=== PATIENT | female | born 1995 | race American Indian/Alaskan Native ===

== ENCOUNTER 2018-11-03 11:02 | Emergency (ER) | payer BC ==
--- NOTE | 2018-11-03 11:20 | Emergency Department Report ---
Blank Doc - Documentation Documentation: 23 y/o female c/o cough for 3 weeks and sore throat for 3 days. Last menses September 26 had negative home test 2 days ago. Plan. Cxr if urine preg neg. if positive f/u with OB
--- NOTE | 2018-11-03 11:53 | Emergency Department Report ---
- General Chief Complaint: Upper Respiratory Infection Stated Complaint: CHEST PAIN Time Seen by Provider: 11/03/18 11:16 Source: patient Mode of arrival: Ambulatory Limitations: No Limitations - History of Present Illness Initial Comments: Pt is a 23-year-old female who presents to the emergency Department with complaints of a cough that began 3 weeks ago. She has associated congestion, sore throat, throat dryness. She denies any sick contacts. She denies any fever, rhinorrhea. She states she has been taking [id number] NyQuil and TheraFlu without much relief. Last normal menstrual period September 26. - Related Data Previous Rx's Medication Instructions Recorded Last Taken Type Benzonatate [Tessalon Perles] 100 mg PO Q8HR PRN #20 capsule 11/03/18 Unknown Rx Cetirizine HCl [Zyrtec 10mg tab] 10 mg PO DAILY #30 tablet 11/03/18 Unknown Rx Fluticasone [Flonase] 1 spray NS QDAY #1 bottle 11/03/18 Unknown Rx Prednisone [predniSONE 10 mg 10 mg PO .TAPER #1 tab.ds.pk 11/03/18 Unknown Rx (6-Day Pack, 21 Tabs)] Allergies Allergy/AdvReac Type Severity Reaction Status Date / Time No Known Allergies Allergy Unverified 11/03/18 11:03 ED Review of Systems ROS: Stated complaint: CHEST PAIN Other details as noted in HPI Comment: All other systems reviewed and negative ED Past Medical Hx - Past Medical History Previous Medical History?: No - Surgical History Past Surgical History?: No - Social History Smoking Status: Never Smoker Substance Use Type: Alcohol - Medications Home Medications: Home Medications Medication Instructions Recorded Confirmed Last Taken Type Benzonatate [Tessalon Perles] 100 mg PO Q8HR PRN #20 capsule 11/03/18 Unknown Rx Cetirizine HCl [Zyrtec 10mg tab] 10 mg PO DAILY #30 tablet 11/03/18 Unknown Rx Fluticasone [Flonase] 1 spray NS QDAY #1 bottle 11/03/18 Unknown Rx Prednisone [predniSONE 10 mg 10 mg PO .TAPER #1 tab.ds.pk 11/03/18 Unknown Rx (6-Day Pack, 21 Tabs)] ED Physical Exam - General Limitations: No Limitations General appearance: alert, in no apparent distress - Head Head exam: Present: atraumatic, normocephalic - Eye Eye exam: Present: normal appearance, PERRL - ENT ENT exam: Present: normal orophraynx, mucous membranes moist, TM's normal bilaterally, normal external ear exam, other (pale, boggy turbinates bilaterally, no sinus TTP) - Respiratory Respiratory exam: Present: normal lung sounds bilaterally. Absent: respiratory distress, wheezes, rales, rhonchi, stridor, chest wall tenderness, accessory muscle use, decreased breath sounds, prolonged expiratory - Cardiovascular Cardiovascular Exam: Present: regular rate, normal rhythm, normal heart sounds. Absent: systolic murmur, diastolic murmur, rubs, gallop - Neurological Exam Neurological exam: Present: alert, oriented X3 - Psychiatric Psychiatric exam: Present: normal affect, normal mood - Skin Skin exam: Present: warm, dry, intact ED Course Vital Signs 11/03/18 11/03/18 11:15 13:40 Temperature 98.1 F 98.2 F Pulse Rate 79 73 Respiratory 18 16 Rate Blood Pressure 120/61 Blood Pressure 102/53 [Left] O2 Sat by Pulse 100 98 Oximetry ED Medical Decision Making - Radiology Data Radiology results: report reviewed Ordering Physician: TOMAS HIGUERA Date of Service: 11/03/18 Procedure(s): XR chest routine 2V Accession Number(s): [id number] cc: TOMAS HIGUERA Fluoro Time In Minutes: PROCEDURE: XR CHEST ROUTINE 2V TECHNIQUE: PA and lateral chest radiographs were obtained. HISTORY: cough COMPARISONS: None. FINDINGS: Frontal and lateral views of the chest were acquired. The heart is normal in size. The lungs appear clear. The pleura and mediastinum are within normal limits. IMPRESSION: No active disease in the chest This document is electronically signed by Vlad Ceja MD., November 03 2018 02:06:00 PM ET Transcribed By: LÓPEZ Dictated By: VLAD CEJA MD Electronically Authenticated By: VLAD CEJA MD Signed Date/Time: 11/03/18 0975 - Medical Decision Making Pt is a 23-year-old female who presents to the emergency Department with complaints of a cough that began 3 weeks ago. She has associated congestion, sore throat, throat dryness. She denies any sick contacts. She denies any fever, rhinorrhea. She states she has been taking [id number] NyQuil and TheraFlu without much relief. Last normal menstrual period September 26. on exam: pale, boggy turbinates bilaterally, no sinus TTP, clear lung sounds bilaterally. vitals are normal. pt given flonase, tessalon perles, zyrtec, and medrol dose pack. discussed to please take medication as prescribed. continue drinking plenty of fluids. follow up with a primary care doctor in the next 2-3 days. return to the emergency room for any new or worsening symptoms. - Differential Diagnosis URI, viral syndrome, PNA, allergic rhinitis, season allergies Critical care attestation.: If time is entered above; I have spent that time in minutes in the direct care of this critically ill patient, excluding procedure time. ED Disposition Clinical Impression: URI (upper respiratory infection) Qualifiers: URI type: unspecified URI Qualified Code(s): J06.9 - Acute upper respiratory infection, unspecified Allergic rhinitis Qualifiers: Allergic rhinitis trigger: unspecified Allergic rhinitis seasonality: unspecified Qualified Code(s): J30.9 - Allergic rhinitis, unspecified Disposition: DC-01 TO HOME OR SELFCARE Is pt being admited?: No Does the pt Need Aspirin: No Condition: Stable Instructions: Upper Respiratory Infection (ED), Allergic Rhinitis (ED) Additional Instructions: Please take medication as prescribed. continue drinking plenty of fluids. follow up with a primary care doctor in the next 2-3 days. return to the emergency room for any new or worsening symptoms. Prescriptions: Fluticasone [Flonase] 1 spray NS QDAY #1 bottle Prednisone [predniSONE 10 mg (6-Day Pack, 21 Tabs)] 10 mg PO .TAPER #1 tab.ds.pk Benzonatate [Tessalon Perles] 100 mg PO Q8HR PRN #20 capsule PRN Reason: Cough Cetirizine HCl [Zyrtec 10mg tab] 10 mg PO DAILY #30 tablet Referrals: DENISE HODGES MD [Primary Care Provider] - 2-3 Days Forms: Work/School Release Form(ED) Time of Disposition: 14:09 Print Language: SWISS
[2018-11-03 12:34] LABS: HCG Qualitative,Urine Negative (Negative)
[2018-11-03 13:41] VITALS: BP 102/53
--- NOTE | 2018-11-03 14:08 | XRay Report ---
PROCEDURE: XR CHEST ROUTINE 2V TECHNIQUE: PA and lateral chest radiographs were obtained. HISTORY: cough COMPARISONS: None. FINDINGS: Frontal and lateral views of the chest were acquired. The heart is normal in size. The lungs appear c lear. The pleura and mediastinum are within normal limits. IMPRESSION: No active disease in the chest This document is electronically signed by Vlad Vázquez MD., November 03 2018 02:06:00 PM ET
== END 2018-11-03 14:20 | disposition home or self-care (01) ==
LOC: ED 11:02
DX: J06.9 Acute upper respiratory infection, unspecified (principal); J30.9 Allergic rhinitis, unspecified; Z79.899 Other long term (current) drug therapy
CPT/HCPCS: 71046; 81025; 99283